=== PATIENT | female | born 1980 | race Caucasian/White ===

== ENCOUNTER 2022-12-09 14:35 | Emergency (ER) | payer OTHER, BC ==
[~2022-12-09] VITALS: Ht 157.5 cm; Wt 108.9 kg
--- NOTE | 2022-12-09 14:40 | NUR ---
Pt seen by MD for Bedside Eval. Safety measures in place. Will continue to monitor.
--- NOTE | 2022-12-09 14:41 | NUR ---
Patient BIB ambulance from work with c/o general weakness with a hypertensive episode. Patient remains a/ox4, no s/s of any respiratory distress, abd obese, soft with positive bowel sounds noted. Informed of plan of care, assisted into gown and placed on monitor. #20g established in left forearm, blood collected and sent to lab. Bedside EKG in progress for MD review, will continue to monitor.
[2022-12-09] MEDS ORDERED: ONDANSETRON 4 MG/2 ML VIAL ONE (14:56)
[2022-12-09 15:06] LABS: HEMATOCRIT 38.4 % (31.2-41.9); MEAN CORPUSCULAR HEMOGLOBIN 27.6 uug (24.7-32.8); MEAN CORPUSCULAR VOLUME 83.2 fL (75.5-95.3); PLATELET COUNT (AUTO) 345 K/uL (179-408)
[2022-12-09] MEDS: ONDANSETRON 4 MG/2 ML VIAL IV ONE (15:06)
[2022-12-09 15:30] LABS: ALANINE AMINOTRANSFERASE 24 U/L (14-59); ALKALINE PHOSPHATASE 76 U/L (50-136); ASPARTATE AMINOTRANSFERASE 15 U/L (15-37); BILIRUBIN,DIRECT 0.1 mg/dL (0.0-0.2); BILIRUBIN,TOTAL 0.3 mg/dL (0.2-1.0); CARBON DIOXIDE 27 mmol/L (21-32); CHLORIDE 102 mmol/L (98-107); GLUCOSE 135 mg/dL (74-106); POTASSIUM 3.4 mmol/L (3.5-5.1); TOTAL PROTEIN, SERUM 7.2 g/dL (6.4-8.2); UREA NITROGEN, BLOOD 15 mg/dL (7-18)
--- NOTE | 2022-12-09 15:54 | NUR ---
FAMILY MEMBER AT BEDSIDE, PATIENT AWARE AWITING RESULTS, NO C/O PAIN OR DISCOMFORT AT THIS TIME.
--- NOTE | 2022-12-09 17:22 | NUR ---
Patient sitting up at bedside, talking with family member, awaiting MD re-eval.
--- NOTE | 2022-12-09 17:52 | NUR ---
ACI GIVEN STATES UNDERSTANDING, REMAINS STABLE FOR DISCHARGE HOME WITH FAMILY.
== END 2022-12-09 17:57 | disposition home or self-care (01) ==
LOC: ER 14:35
DX: I10 Essential (primary) hypertension (principal); R11.0 Nausea; R07.89 Other chest pain; R10.2 Pelvic and perineal pain
CPT/HCPCS: 99285; 96374; 71045; 80076; 80048; 85025; 84484; 84702; 36415; 93005; J2405; A4663